=== PATIENT | male | born 1955 | race Caucasian/White ===

== ENCOUNTER 2017-11-14 08:06 | Outpatient (CLI) | payer MEDICARE ==
--- NOTE | 2017-11-14 10:09 | ULT ---
ULTRASOUND ABDOMINAL AORTA: Date: 11/14/17 HISTORY: Screening for AAA FINDINGS: The abdominal aorta measures 2.7 cm in the proximal region, 2.3 cm mid, and 1.8 cm in the distal aspe ct. IMPRESSION: No evidence of abdominal aortic aneurysm. POS: [facility]
== END 2017-11-14 08:07 | disposition home or self-care (01) ==
LOC: SCSULT 08:06
PROVIDERS: ATTEND Family Medicine
DX: Z13.6 Encounter for screening for cardiovascular disorders (principal)
CPT/HCPCS: 76775

== ENCOUNTER 2021-03-10 14:45 | Emergency (ER) | payer MEDICARE | END 2021-03-10 17:08 | disposition home or self-care (01) | LOC: ERS 14:45 | DX: G51.0 Bell's palsy (principal); I10 Essential (primary) hypertension; Z79.82 Long term (current) use of aspirin; Z79.899 Other long term (current) drug therapy | CPT/HCPCS: 70450 ==

== ENCOUNTER 2021-03-29 15:56 | Outpatient (CLI) | payer MEDICARE | END 2021-03-29 15:57 | disposition home or self-care (01) | LOC: BICULT 15:56 | PROVIDERS: ATTEND Internal Medicine Nephrology | DX: N18.30 Chronic kidney disease, stage 3 unspecified (principal); N28.1 Cyst of kidney, acquired | CPT/HCPCS: 76770; 80048; 81003; 82040; 82306; 82570; 83735; 83970; 84100; 84156 ==

== ENCOUNTER 2021-09-30 13:59 | Emergency (ER) | payer OTHER ==
[~2021-09-30 13:59] MED LIST: ISOVUE-370 76%-LOCM 1 ML ONE
[2021-09-30 14:29] LABS: #Eosinphils 0.4 thou/uL (0.0-0.7); #Lymphocytes 2.6 thou/uL (1.20-3.40); #Monocytes 1.1 thou/uL (0.11-0.59); #Neutrophils 12.6 thou/uL (1.40-6.50); %Basophils 0.2 % (0.0-1.0); %Eosinophils 2.5 % (0.0-10.0); %Lymphocytes 15.4 % (21.0-51.0); %Monocytes 6.7 % (0.0-10.0); %Neutrophils 75.1 % (42.0-75.0); Hemoglobin 12.4 g/dL (14.0-18.0); Mean Corpuscular HGB CONC 33.5 g/dL (32.0-36.0); Mean Corpuscular Hemoglobin 31.6 pg (27.0-31.0); Mean Corpuscular Volume 94.3 fL (78.0-98.0); Mean Platelet Volume 8.2 fL (7.4-10.4); Platelet Count 363 thou/uL (130-400); RBC Distribution Width 14.5 % (11.5-14.5); Red Blood Cell (RBC) Count 3.92 mill/uL (4.70-6.10); White Blood Cell (WBC) Count 16.8 thou/uL (4.8-10.8)
[2021-09-30 14:39] LABS: PTT 31.1 sec (22.9-36.1); Prothrombin Time 13.5 sec (12.0-14.7)
[2021-09-30] MEDS ORDERED: Acetaminophen 500 MG TAB ONE (14:47)
[2021-09-30 15:03] LABS: ALT (SGPT) 24 U/L (8-55); AST (SGOT) 32 U/L (5-34); Albumin 3.8 g/dL (3.4-4.8); Alkaline Phosphatase 135 U/L (40-110); Anion Gap 19 mmol/L (10-20); BUN (Urea Nitrogen) 26 mg/dL (8.4-25.7); Bilirubin, Total 0.5 mg/dL (0.2-1.2); CK (CPK) 49 U/L (30-200); Calc. Creatinine Clearance 0 mL/min (70-130); Carbon Dioxide 22 mmol/L (23-31); Chloride 106 mmol/L (98-107); Estimated GFR 39; Globulin 3.8 g/dL (2.4-3.5); Glucose 117 mg/dL (80-115); Potassium 4.5 mmol/L (3.5-5.1); Protein, Total 7.6 g/dL (5.8-8.1); Sodium 142 mmol/L (136-145)
[2021-09-30] MEDS ORDERED: Lidocaine 1% w/Epinephrine 1:100K 20 ML VIAL ONE (15:08)
[2021-09-30] MEDS ORDERED: Bacitracin 1 PK ONE (15:31)
== END 2021-09-30 15:54 | disposition home or self-care (01) ==
LOC: ERS 13:59
DX: S02.32XA Fracture of orbital floor, left side, initial encounter for closed fracture (principal); S01.112A Laceration without foreign body of left eyelid and periocular area, initial encounter; I10 Essential (primary) hypertension; E78.00 Pure hypercholesterolemia, unspecified; Z79.899 Other long term (current) drug therapy; W01.0XXA Fall on same level from slipping, tripping and stumbling without subsequent striking against object, initial encounter
CPT/HCPCS: 12013; 36415; 36416; 70450; 70496; 70498; 80053; 82550; 84484; 85610; 85730; 86850; 86900; 86901; 93005; Q9966

== ENCOUNTER 2022-04-28 22:54 | Inpatient (IN) | payer OTHER ==
[2022-04-28] MEDS ORDERED: Dextrose 50% Abboject 50 ML SYRINGE SLOW IVP PRN (23:25)
[2022-04-28] MEDS ORDERED: Ondansetron PF 4 MG/2 ML Vial IVP PRN (23:25)
[2022-04-28] MEDS ORDERED: TETANUS, DIPHTHERIA TOX,ADULT (TDVAX) 0.5 ML VIAL IM ONE (23:25)
[2022-04-28] MEDS ORDERED: Dextrose 5% in Water 1,000 ML IV PRN (23:25)
[2022-04-28] MEDS ORDERED: Insulin Regular 300 UNITS/3 ML VIAL SC PRN (23:25)
[2022-04-28] MEDS ORDERED: hydrALAZINE 20 MG/ML VIAL SLOW IVP PRN (23:32)
[2022-04-28 23:54] LABS: Hemoglobin 14.4 g/dL (14.0-18.0); Mean Corpuscular HGB CONC 32.4 g/dL (32.0-36.0); Mean Corpuscular Hemoglobin 30.1 pg (27.0-31.0); Mean Corpuscular Volume 92.9 fl (78.0-98.0); Mean Platelet Volume 9.2 fL (7.4-10.4); Platelet Count 278 10x3/uL (130-400); RBC Distribution Width 14.3 % (11.5-14.5); Red Blood Cell (RBC) Count 4.77 mill/uL (4.70-6.10); White Blood Cell (WBC) Count 20.2 10x3/uL (4.8-10.8)
[2022-04-29 00:10] LABS: Prothrombin Time 14.1 sec (12.0-14.7)
[2022-04-29 00:12] LABS: Anion Gap 14 mmol/L (10-20); BUN (Urea Nitrogen) 12 mg/dL (8.4-25.7); Calc. Creatinine Clearance 0 mL/min (70-130); Carbon Dioxide 26 mmol/L (23-31); Chloride 105 mmol/L (98-107); Estimated GFR 63; Glucose 127 mg/dL (80-115); Magnesium 2.1 mg/dL (1.6-2.6); Phosphorus 2.6 mg/dL (2.3-4.7); Potassium 3.7 mmol/L (3.5-5.1); Sodium 141 mmol/L (136-145)
[2022-04-29 00:27] LABS: Band 4 % (5-11); Lymphocytes 8 % (21-51); MDiff Complete? YES; Monocytes 11 % (0-10); Neutrophil 76 % (42-75); Platelet Morphology Comment Appears Adequate; RBC Morphology Normal
[2022-04-29] MEDS ORDERED: Fentanyl 100 MCG/2 ML VIAL ONE (01:01)
[2022-04-29 01:53] LABS: SARS-CoV-2 NAA Rapid Test Not Detected (NotDetected)
[2022-04-29] MEDS: Sodium Chloride 0.9% 1,000 ML IV SCH ×3 (02:34→19:30)
[2022-04-29] MEDS: Acetaminophen 500 MG TAB PO SCH ×4 (02:52→19:24)
[2022-04-29 02:59] LABS: #Monocytes 1.9 thou/uL (0.11-0.59); #Neutrophils 17.3 thou/uL (1.40-6.50); %Eosinophils 0.2 % (0.0-10.0); %Lymphocytes 9.5 % (21.0-51.0); %Monocytes 8.9 % (0.0-10.0); %Neutrophils 81.4 % (42.0-75.0); Hemoglobin 14.9 g/dL (14.0-18.0); Mean Corpuscular HGB CONC 31.5 g/dL (32.0-36.0); Mean Corpuscular Hemoglobin 29.9 pg (27.0-31.0); Mean Platelet Volume 9.7 fL (7.4-10.4); Platelet Count 254 10x3/uL (130-400); RBC Distribution Width 14.6 % (11.5-14.5); Red Blood Cell (RBC) Count 4.97 mill/uL (4.70-6.10); White Blood Cell (WBC) Count 21.3 10x3/uL (4.8-10.8)
[2022-04-29 03:26] LABS: Anion Gap 16 mmol/L (10-20); BUN (Urea Nitrogen) 12 mg/dL (8.4-25.7); Calc. Creatinine Clearance 78 mL/min (70-130); Carbon Dioxide 22 mmol/L (23-31); Chloride 110 mmol/L (98-107); Estimated GFR 75; Glucose 123 mg/dL (80-115); Potassium 3.9 mmol/L (3.5-5.1); Sodium 144 mmol/L (136-145)
[2022-04-29 06:30] LABS: Bacteria/HPF None Seen HPF (None Seen); Bilirubin Negative (Negative); Blood, Urine 2+ (Negative); CAUTI Indications for Culture Alt mental st,lethar; Clarity Clear (Clear); Glucose, Urine (Dipstick) Normal (Negative); Ketone, Urine Negative (Negative); Leukocyte Negative Leu/uL (Negative); Nitrite Negative (Negative); Protein, Urine (Dipstick) 20 mg/dL (Neg-Trace); Specific Gravity, Urine 1.022 (1.002-1.036); Squamous Epithelial None Seen HPF (0-3); Urobilinogen Normal mg/dL (Less than 2); WBC/HPF 21-50 HPF (0-3); pH, Urine 5.5 (5.0-9.0)
[2022-04-29 06:49] LABS: Urine Culture Reflex Yes Yes
[2022-04-29 06:50] LABS: INR-International Normal Ratio 1.1; Prothrombin Time 14.5 sec (12.0-14.7)
[2022-04-29] MEDS: Ipratropium/Albuterol 3 ML NEB NEB SCH ×3 (07:34→19:03)
[2022-04-29] MEDS: Thiamine 100 MG TAB PO SCH (08:26)
[2022-04-29] MEDS: cefTRIAXone\\ROCEPHIN 2 GM in Sodium Chloride 0.9% 100 ML IVPB SCH (08:26)
[2022-04-29] MEDS: Famotidine/PF 20 mg/2ml Vial SLOW IVP SCH ×2 (08:26→21:29)
[2022-04-29] MEDS: Folic Acid/Vit B Comp W-C PO SCH (08:30)
[2022-04-29] MEDS ORDERED: Losartan 25 MG TAB PO SCH (08:30)
[2022-04-29] MEDS ORDERED: Iopamidol-370 76% 500 ML 1 ML ONE (10:55)
[2022-04-29] MEDS: Atorvastatin Calcium 10 MG TAB PO SCH (21:29)
[2022-04-30] MEDS: Acetaminophen 500 MG TAB PO SCH ×4 (06:09→18:51)
[2022-04-30] MEDS: Sodium Chloride 0.9% 1,000 ML IV SCH ×2 (06:16→10:03)
[2022-04-30] MEDS: Ipratropium/Albuterol 3 ML NEB NEB SCH ×3 (06:50→19:47)
[2022-04-30] MEDS ORDERED: levETIRAcetam in NS 500 MG in Premix Bag 1 BAG IVPB SCH (09:00)
[2022-04-30 09:57] LABS: #Eosinphils 0.1 thou/uL (0.0-0.7); #Monocytes 1.6 thou/uL (0.11-0.59); #Neutrophils 16.9 thou/uL (1.40-6.50); %Basophils 0.2 % (0.0-1.0); %Eosinophils 0.7 % (0.0-10.0); %Lymphocytes 9.5 % (21.0-51.0); %Monocytes 7.8 % (0.0-10.0); %Neutrophils 81.8 % (42.0-75.0); Hemoglobin 13.8 g/dL (14.0-18.0); Mean Corpuscular HGB CONC 32.8 g/dL (32.0-36.0); Mean Corpuscular Hemoglobin 30.4 pg (27.0-31.0); Mean Corpuscular Volume 92.7 fl (78.0-98.0); Mean Platelet Volume 9.4 fL (7.4-10.4); Platelet Count 280 10x3/uL (130-400); RBC Distribution Width 14.1 % (11.5-14.5); Red Blood Cell (RBC) Count 4.54 mill/uL (4.70-6.10); White Blood Cell (WBC) Count 20.6 10x3/uL (4.8-10.8)
[2022-04-30] MEDS: levETIRAcetam 500 MG/5 ML VIAL SLOW IVP SCH ×2 (10:02→21:57)
[2022-04-30] MEDS: Folic Acid/Vit B Comp W-C PO SCH (10:02)
[2022-04-30] MEDS: Losartan 25 MG TAB PO SCH (10:02)
[2022-04-30] MEDS: Thiamine 100 MG TAB PO SCH (10:02)
[2022-04-30] MEDS: Famotidine/PF 20 mg/2ml Vial SLOW IVP SCH ×2 (10:02→21:57)
[2022-04-30] MEDS: cefTRIAXone\\ROCEPHIN 2 GM in Sodium Chloride 0.9% 100 ML IVPB SCH (10:05)
[2022-04-30] MEDS: Atorvastatin Calcium 10 MG TAB PO SCH (21:58)
[2022-05-01] MEDS: Acetaminophen 500 MG TAB PO SCH ×5 (02:26→23:47)
[2022-05-01] MEDS: Ipratropium/Albuterol 3 ML NEB NEB SCH ×3 (06:41→18:35)
[2022-05-01] MEDS: levETIRAcetam 500 MG/5 ML VIAL SLOW IVP SCH (09:29)
[2022-05-01] MEDS: Losartan 25 MG TAB PO SCH (09:30)
[2022-05-01] MEDS: Folic Acid/Vit B Comp W-C PO SCH (09:30)
[2022-05-01] MEDS: Famotidine 20 MG TAB PO SCH ×2 (09:30→20:41)
[2022-05-01] MEDS: Thiamine 100 MG TAB PO SCH (09:30)
[2022-05-01] MEDS: Atorvastatin Calcium 10 MG TAB PO SCH (20:42)
[2022-05-01] MEDS: levETIRAcetam 500 MG TAB PO SCH (20:42)
[2022-05-02] MEDS: Acetaminophen 500 MG TAB PO SCH ×4 (05:50→23:49)
[2022-05-02] MEDS ORDERED: Fleet Enema 133 ML BOT PR SCH (07:30)
[2022-05-02 07:56] LABS: #Basophils 0.1 thou/uL (0.0-0.2); #Eosinphils 0.4 thou/uL (0.0-0.7); #Lymphocytes 1.8 thou/uL (1.20-3.40); #Neutrophils 11.5 thou/uL (1.40-6.50); %Basophils 0.4 % (0.0-1.0); %Eosinophils 2.5 % (0.0-10.0); %Lymphocytes 12.1 % (21.0-51.0); %Monocytes 6.8 % (0.0-10.0); %Neutrophils 78.3 % (42.0-75.0); Hemoglobin 11.7 g/dL (14.0-18.0); Mean Corpuscular HGB CONC 32.5 g/dL (32.0-36.0); Mean Corpuscular Hemoglobin 29.7 pg (27.0-31.0); Mean Corpuscular Volume 91.2 fl (78.0-98.0); Platelet Count 325 10x3/uL (130-400); RBC Distribution Width 13.7 % (11.5-14.5); Red Blood Cell (RBC) Count 3.96 mill/uL (4.70-6.10); White Blood Cell (WBC) Count 14.7 10x3/uL (4.8-10.8)
[2022-05-02 08:13] LABS: Anion Gap 10 mmol/L (10-20); BUN (Urea Nitrogen) 13 mg/dL (8.4-25.7); Calc. Creatinine Clearance 93 mL/min (70-130); Calcium 9.5 mg/dL (7.8-10.44); Carbon Dioxide 25 mmol/L (23-31); Chloride 104 mmol/L (98-107); Estimated GFR 92; Glucose 94 mg/dL (80-115); Magnesium 1.9 mg/dL (1.6-2.6); Phosphorus 2.9 mg/dL (2.3-4.7); Potassium 3.3 mmol/L (3.5-5.1); Sodium 136 mmol/L (136-145)
[2022-05-02] MEDS: Ipratropium/Albuterol 3 ML NEB NEB SCH ×3 (08:23→19:10)
[2022-05-02] MEDS ORDERED: PHOS-NAK 1 PKT PACK PO SCH (08:30)
[2022-05-02] MEDS ORDERED: Potassium Chloride 20 MEQ TAB PO SCH (08:30)
[2022-05-02] MEDS: Losartan 25 MG TAB PO SCH (08:53)
[2022-05-02] MEDS: Thiamine 100 MG TAB PO SCH (08:53)
[2022-05-02] MEDS: Senokot S 8.6-50 MG TAB PO SCH ×2 (08:53→20:42)
[2022-05-02] MEDS: Famotidine 20 MG TAB PO SCH ×2 (08:53→20:42)
[2022-05-02] MEDS: Polyethylene Glycol 3350 17 GM Packet PO SCH (08:53)
[2022-05-02] MEDS: Folic Acid/Vit B Comp W-C PO SCH (08:53)
[2022-05-02] MEDS: levETIRAcetam 500 MG TAB PO SCH ×2 (08:53→20:42)
[2022-05-02] MEDS ORDERED: Bisacodyl 10 MG SUPP PR PRN (09:00)
[2022-05-02] MEDS ORDERED: FLU VACC QS2022-23(65YR UP)/PF 240 MCG/0.7 ML SYRINGE IM ONE (09:00)
[2022-05-02] MEDS: Atorvastatin Calcium 10 MG TAB PO SCH (20:42)
[2022-05-03] MEDS: Acetaminophen 500 MG TAB PO SCH ×4 (05:19→23:24)
[2022-05-03 06:36] LABS: #Eosinphils 0.4 thou/uL (0.0-0.7); #Monocytes 1.3 thou/uL (0.11-0.59); #Neutrophils 14.4 thou/uL (1.40-6.50); %Basophils 0.2 % (0.0-1.0); %Eosinophils 2.3 % (0.0-10.0); %Monocytes 7.3 % (0.0-10.0); %Neutrophils 79.1 % (42.0-75.0); Hemoglobin 12.6 g/dL (14.0-18.0); Mean Corpuscular HGB CONC 31.3 g/dL (32.0-36.0); Mean Corpuscular Volume 92.9 fl (78.0-98.0); Mean Platelet Volume 8.8 fL (7.4-10.4); Platelet Count 352 10x3/uL (130-400); RBC Distribution Width 13.9 % (11.5-14.5); Red Blood Cell (RBC) Count 4.34 mill/uL (4.70-6.10); White Blood Cell (WBC) Count 18.2 10x3/uL (4.8-10.8)
[2022-05-03 06:57] LABS: Anion Gap 15 mmol/L (10-20); BUN (Urea Nitrogen) 15 mg/dL (8.4-25.7); Calc. Creatinine Clearance 85 mL/min (70-130); Calcium 10.2 mg/dL (7.8-10.44); Carbon Dioxide 22 mmol/L (23-31); Chloride 105 mmol/L (98-107); Estimated GFR 87; Glucose 89 mg/dL (80-115); Phosphorus 3.2 mg/dL (2.3-4.7); Sodium 138 mmol/L (136-145)
[2022-05-03] MEDS: Ipratropium/Albuterol 3 ML NEB NEB SCH ×3 (07:39→18:39)
[2022-05-03] MEDS: levETIRAcetam 500 MG TAB PO SCH ×2 (10:16→20:36)
[2022-05-03] MEDS: Folic Acid/Vit B Comp W-C PO SCH (10:16)
[2022-05-03] MEDS: Famotidine 20 MG TAB PO SCH ×2 (10:17→20:36)
[2022-05-03] MEDS: Thiamine 100 MG TAB PO SCH (10:17)
[2022-05-03] MEDS: Losartan 25 MG TAB PO SCH (10:17)
[2022-05-03] MEDS: Polyethylene Glycol 3350 17 GM Packet PO SCH (10:18)
[2022-05-03] MEDS: Senokot S 8.6-50 MG TAB PO SCH ×2 (10:18→20:34)
[2022-05-03] MEDS: Atorvastatin Calcium 10 MG TAB PO SCH (20:36)
[2022-05-03] MEDS: levETIRAcetam 500 mg/5 ml Oral Solution PO SCH (21:10)
[2022-05-04] MEDS: Acetaminophen 500 MG TAB PO SCH ×3 (05:18→17:52)
[2022-05-04] MEDS: Ipratropium/Albuterol 3 ML NEB NEB SCH ×3 (07:00→21:21)
[2022-05-04] MEDS: Polyethylene Glycol 3350 17 GM Packet PO SCH (09:39)
[2022-05-04] MEDS: levETIRAcetam 500 mg/5 ml Oral Solution PO SCH ×2 (09:40→20:45)
[2022-05-04] MEDS: Losartan 25 MG TAB PO SCH (09:40)
[2022-05-04] MEDS: Folic Acid/Vit B Comp W-C PO SCH (09:40)
[2022-05-04] MEDS: Famotidine 20 MG TAB PO SCH ×2 (09:40→20:45)
[2022-05-04] MEDS: Senokot S 8.6-50 MG TAB PO SCH ×2 (09:40→20:46)
[2022-05-04] MEDS: Thiamine 100 MG TAB PO SCH (09:40)
[2022-05-04] MEDS: Atorvastatin Calcium 10 MG TAB PO SCH (20:45)
[2022-05-05] MEDS: Acetaminophen 500 MG TAB PO SCH ×4 (00:03→18:09)
[2022-05-05] MEDS: Ipratropium/Albuterol 3 ML NEB NEB SCH ×3 (08:17→18:44)
[2022-05-05] MEDS: levETIRAcetam 500 mg/5 ml Oral Solution PO SCH ×2 (09:00→21:05)
[2022-05-05] MEDS: Losartan 25 MG TAB PO SCH (09:00)
[2022-05-05] MEDS: Folic Acid/Vit B Comp W-C PO SCH (09:00)
[2022-05-05] MEDS: Thiamine 100 MG TAB PO SCH (09:01)
[2022-05-05] MEDS: Senokot S 8.6-50 MG TAB PO SCH ×2 (09:01→21:05)
[2022-05-05] MEDS: Polyethylene Glycol 3350 17 GM Packet PO SCH (09:01)
[2022-05-05] MEDS: Atorvastatin Calcium 10 MG TAB PO SCH (21:04)
[2022-05-06] MEDS: Acetaminophen 500 MG TAB PO SCH ×4 (05:16→17:58)
[2022-05-06] MEDS: Ipratropium/Albuterol 3 ML NEB NEB SCH (06:54)
[2022-05-06] MEDS: Thiamine 100 MG TAB PO SCH (09:51)
[2022-05-06] MEDS: Losartan 25 MG TAB PO SCH (09:51)
[2022-05-06] MEDS: levETIRAcetam 500 mg/5 ml Oral Solution PO SCH ×2 (09:51→21:43)
[2022-05-06] MEDS: Polyethylene Glycol 3350 17 GM Packet PO SCH (09:51)
[2022-05-06] MEDS: Folic Acid/Vit B Comp W-C PO SCH (09:51)
[2022-05-06] MEDS: Senokot S 8.6-50 MG TAB PO SCH ×2 (09:52→21:43)
[2022-05-06] MEDS ORDERED: Ipratropium/Albuterol 3 ML NEB NEB PRN (11:05)
[2022-05-06] MEDS: Atorvastatin Calcium 10 MG TAB PO SCH (21:43)
[2022-05-07] MEDS: Acetaminophen 500 MG TAB PO SCH ×5 (00:29→23:31)
[2022-05-07] MEDS: Folic Acid/Vit B Comp W-C PO SCH (09:14)
[2022-05-07] MEDS: levETIRAcetam 500 mg/5 ml Oral Solution PO SCH ×2 (09:15→21:08)
[2022-05-07] MEDS: Thiamine 100 MG TAB PO SCH (09:15)
[2022-05-07] MEDS: Polyethylene Glycol 3350 17 GM Packet PO SCH (09:15)
[2022-05-07] MEDS: Losartan 25 MG TAB PO SCH (09:15)
[2022-05-07] MEDS: Senokot S 8.6-50 MG TAB PO SCH ×2 (09:15→21:08)
[2022-05-07] MEDS: Atorvastatin Calcium 10 MG TAB PO SCH (21:08)
[2022-05-08] MEDS: Acetaminophen 500 MG TAB PO SCH ×3 (05:24→18:19)
[2022-05-08] MEDS: Thiamine 100 MG TAB PO SCH (09:38)
[2022-05-08] MEDS: Senokot S 8.6-50 MG TAB PO SCH ×2 (09:38→20:58)
[2022-05-08] MEDS: levETIRAcetam 500 mg/5 ml Oral Solution PO SCH ×2 (09:38→20:58)
[2022-05-08] MEDS: Folic Acid/Vit B Comp W-C PO SCH (09:38)
[2022-05-08] MEDS: Polyethylene Glycol 3350 17 GM Packet PO SCH (09:38)
[2022-05-08] MEDS: Losartan 25 MG TAB PO SCH (09:38)
[2022-05-08] MEDS: Atorvastatin Calcium 10 MG TAB PO SCH (20:58)
[2022-05-09] MEDS: Acetaminophen 500 MG TAB PO SCH ×5 (00:29→23:27)
[2022-05-09] MEDS: levETIRAcetam 500 mg/5 ml Oral Solution PO SCH ×2 (09:11→21:17)
[2022-05-09] MEDS: Polyethylene Glycol 3350 17 GM Packet PO SCH (09:11)
[2022-05-09] MEDS: Losartan 25 MG TAB PO SCH (09:11)
[2022-05-09] MEDS: Thiamine 100 MG TAB PO SCH (09:11)
[2022-05-09] MEDS: Senokot S 8.6-50 MG TAB PO SCH ×2 (09:11→21:17)
[2022-05-09] MEDS: Folic Acid/Vit B Comp W-C PO SCH (09:30)
[2022-05-09] MEDS ORDERED: hydrALAZINE 20 MG/ML VIAL SLOW IVP PRN (09:38)
[2022-05-09 14:55] VITALS: BMI 28.8
[2022-05-09] MEDS: Atorvastatin Calcium 40 MG TAB PO SCH (21:17)
[2022-05-10] MEDS: Acetaminophen 500 MG TAB PO SCH ×4 (05:21→23:49)
[2022-05-10] MEDS: Polyethylene Glycol 3350 17 GM Packet PO SCH (09:41)
[2022-05-10] MEDS: Losartan 25 MG TAB PO SCH (09:41)
[2022-05-10] MEDS: Thiamine 100 MG TAB PO SCH (09:41)
[2022-05-10] MEDS: levETIRAcetam 500 mg/5 ml Oral Solution PO SCH ×2 (09:41→21:27)
[2022-05-10] MEDS: Folic Acid/Vit B Comp W-C PO SCH (09:42)
[2022-05-10] MEDS: Senokot S 8.6-50 MG TAB PO SCH ×2 (09:42→21:27)
[2022-05-10] MEDS: Atorvastatin Calcium 40 MG TAB PO SCH (21:27)
[2022-05-11] MEDS: Acetaminophen 500 MG TAB PO SCH ×2 (05:01→14:59)
[2022-05-11] MEDS ORDERED: Losartan 25 MG TAB PO SCH (09:00)
[2022-05-11] MEDS: Polyethylene Glycol 3350 17 GM Packet PO SCH (09:37)
[2022-05-11] MEDS: Senokot S 8.6-50 MG TAB PO SCH (09:37)
[2022-05-11] MEDS: levETIRAcetam 500 mg/5 ml Oral Solution PO SCH (09:41)
[2022-05-11] MEDS: Folic Acid/Vit B Comp W-C PO SCH (09:42)
[2022-05-11] MEDS: Thiamine 100 MG TAB PO SCH (09:42)
[2022-05-11 16:38] VITALS: BP 97/67; TEMP 98
== END 2022-05-11 17:20 | disposition home or self-care (01) | DRG 86 ==
LOC: ERS 22:54 → CCU 23:25 → SURG B 04-29 11:20
PROVIDERS: ADMIT Surgery; ATTEND Surgery
PROC: 4A10X4Z Monitoring of Central Nervous Electrical Activity, External Approach (ICD-10-PCS; principal; 2022-04-30)
DX: S06.5X0A Traumatic subdural hemorrhage without loss of consciousness, initial encounter (principal); G93.40 Encephalopathy, unspecified; W19.XXXA Unspecified fall, initial encounter; I10 Essential (primary) hypertension; E78.5 Hyperlipidemia, unspecified; Z96.643 Presence of artificial hip joint, bilateral; Z20.822 Contact with and (suspected) exposure to COVID-19; D72.829 Elevated white blood cell count, unspecified; K59.00 Constipation, unspecified; Y92.9 Unspecified place or not applicable; Z98.890 Other specified postprocedural states; Z87.891 Personal history of nicotine dependence
CPT/HCPCS: 36415; 36416; 70450; 70496; 70551; 71045; 72125; 80048; 81001; 82140; 83735; 84100; 84146; 84443; 85025; 85610; 85730; 86850; 86900; 86901; 87040; 87086; 87811; 90714; 93970; 94640; 95712; 95819; 95957; 96365; 96366; 96375; 97139; J0696; J1650; J1953; J3010; J3490; J7050; J7620; Q9967; S0028; U0002

== ENCOUNTER 2022-07-24 13:01 | Outpatient (CLI) | payer OTHER | END 2022-07-24 13:02 | disposition home or self-care (01) | LOC: RAD 13:01 | PROVIDERS: ATTEND Psychiatry & Neurology Neurology | DX: S06.5XAA Traumatic subdural hemorrhage with loss of consciousness status unknown, initial encounter (principal); K22.9 Disease of esophagus, unspecified | CPT/HCPCS: 74220; 95816; 95957 ==